=== PATIENT | female | born 1990 | race Caucasian/White ===

== ENCOUNTER 2024-01-19 12:07 | Emergency (ER) | payer MEDICAID ==
[~2024-01-19] VITALS: Ht 170.2 cm; Wt 73.9 kg
[2024-01-19 12:30] VITALS: BP_SYST 119; PULSE 88; RESP 18; TEMP 97.9; O2SAT 100
[2024-01-19] MEDS ORDERED: IBUP-1969 PO (13:32)
[2024-01-19 14:00] VITALS: BP_SYST 119; PULSE 88; RESP 18; TEMP 97.9; O2SAT 100
== END 2024-01-19 14:15 | disposition home or self-care (01) ==
LOC: SED 12:07
DX: S83.91XA Sprain of unspecified site of right knee, initial encounter (principal); X50.1XXA Overexertion from prolonged static or awkward postures, initial encounter; Y93.39 Activity, other involving climbing, rappelling and jumping off; Y92.89 Other specified places as the place of occurrence of the external cause; Y99.8 Other external cause status
CPT/HCPCS: 73564; 99283